=== PATIENT | female | born 1980 | race Caucasian/White ===

== ENCOUNTER 2019-10-12 13:00 | Emergency (ER) | payer OTHER ==
[~2019-10-12] VITALS: Ht 170.2 cm; Wt 63.5 kg
--- NOTE | 2019-10-12 13:21 | NUR ---
is at bedside doing the MSE.
[2019-10-12] MEDS ORDERED: HYDROMORPHONE 1 MG/1 ML DISP.SYRIN ONE (13:27)
[2019-10-12] MEDS ORDERED: ONDANSETRON 4 MG/2 ML VIAL ONE (13:27)
[2019-10-12] MEDS ORDERED: HYDROMORPHONE 1 MG/1 ML DISP.SYRIN IM ONE (13:30)
[2019-10-12] MEDS ORDERED: ONDANSETRON 4 MG/2 ML VIAL IM ONE (13:30)
[2019-10-12 13:42] LABS: *URINE HCG, QUAL NEGATIVE (NEGATIVE)
[2019-10-12 14:04] LABS: *BILIRUBIN,URIN NEGATIVE (NEGATIVE); *COLOR,URINE YELLOW (YELLOW); *KETONES,URINE NEGATIVE (NEGATIVE); *UROBILINOGEN,URINE 0.2 E.U./dl (NORMAL); LEUKOCYTE ESTERASE ,URINE 1+ (NEGATIVE); NITRITE, URINE NEGATIVE (NEGATIVE); PH,URINE 5.5 (5.0-8.0); UGLUCOSE NEGATIVE (NEGATIVE)
[2019-10-12 14:26] LABS: *BLOOD, URINE TRACE (NEGATIVE); *CLARITY,URINE CLOUDY (CLEAR)
[2019-10-12 14:29] LABS: RBC,URINE 0-3 /HPF (0-3); SQUAMOUS EPITHELIAL CELL,UR MODERATE /HPF (NONE SEEN)
[2019-10-12 14:30] LABS: URINE AMORPHOUS PHOSPHATES MANY /HPF
[2019-10-12 14:31] LABS: MUCUS,URINE MODERATE /LPF (0-FEW)
--- NOTE | 2019-10-12 14:58 | NUR ---
Patient discharged to home in stable conditon. Written and verbal after care instructions given. Patient verbalizes understanding of instructions.
[2019-10-12] MEDS ORDERED: IV NORMAL SALINE 1000 ML BAG IV ONE (15:00)
== END 2019-10-12 15:02 | disposition home or self-care (01) ==
LOC: ER 13:00
DX: D25.9 Leiomyoma of uterus, unspecified (principal)
CPT/HCPCS: 74176; 81000; 81001; 84703; 87086; 96372 ×2; 99284; J1170; J2405; 87077; A4663

== ENCOUNTER 2019-12-09 16:44 | Emergency (ER) | payer OTHER ==
[~2019-12-09] VITALS: Ht 170.2 cm; Wt 65.8 kg
[2019-12-09] MEDS ORDERED: VANCOMYCIN IV 200 ML ONE (17:06)
[2019-12-09] MEDS ORDERED: VANCOMYCIN IV 1,000 MG in IV DEXTROSE 5% 250 ML IV ONE (17:15)
--- NOTE | 2019-12-09 17:34 | NUR ---
Patient is resting comfortably on gurney while using her personal electronic device, [email or web address]. Patient is tolerating the IV Vancomycin.
[2019-12-09] MEDS ORDERED: HYDROMORPHONE 1 MG/1 ML DISP.SYRIN ONE (17:43)
[2019-12-09] MEDS ORDERED: ONDANSETRON 4 MG/2 ML VIAL ONE (17:44)
[2019-12-09] MEDS ORDERED: ONDANSETRON 4 MG/2 ML VIAL IV ONE (17:45)
[2019-12-09] MEDS ORDERED: HYDROMORPHONE 1 MG/1 ML DISP.SYRIN IV ONE (17:45)
--- NOTE | 2019-12-09 18:45 | NUR ---
IV removed. Catheter intact and site benign. Pressure and 4x4 gauze applied to site. No bleeding noted. Patient discharged to home in stable condition & steady gait. Written and verbal after care instructions given to patient. Patient verbalized understanding & compliance of instructions. Patient said that she will take "Uber".
== END 2019-12-09 18:47 | disposition home or self-care (01) ==
LOC: ER 16:47
DX: L03.211 Cellulitis of face (principal)
CPT/HCPCS: 96365; 96375; 99284; J1170; J2405; J3370; A4663

== ENCOUNTER 2019-12-10 15:16 | Emergency (ER) | payer OTHER ==
[~2019-12-10] VITALS: Ht 170.2 cm; Wt 65.8 kg
--- NOTE | 2019-12-10 15:55 | NUR ---
Patient presents to ER with request for antibiotics for face wound. Per Patient she was here yesterday and diagnosed with cellulitis on her face and is now requesting antibiotics. Placed in RM 1B. 20g started to Lt forearm. Patient in no acute distress.
--- NOTE | 2019-12-10 15:58 | NUR ---
Seen and examined by Dr. Saenz
[2019-12-10] MEDS ORDERED: HYDROMORPHONE 1 MG/1 ML DISP.SYRIN IV ONE (16:00)
[2019-12-10] MEDS ORDERED: ONDANSETRON 4 MG/2 ML VIAL IV ONE (16:00)
[2019-12-10] MEDS ORDERED: IV NORMAL SALINE 1000 ML BAG IV ONE (16:00)
[2019-12-10] MEDS ORDERED: ONDANSETRON 4 MG/2 ML VIAL ONE (16:03)
[2019-12-10] MEDS ORDERED: HYDROMORPHONE 1 MG/1 ML DISP.SYRIN ONE (16:03)
[2019-12-10] MEDS ORDERED: VANCOMYCIN IV 200 ML ONE (16:45)
[2019-12-10] MEDS ORDERED: VANCOMYCIN IV 1,000 MG in IV DEXTROSE 5% 250 ML IV ONE (16:45)
--- NOTE | 2019-12-10 17:00 | NUR ---
Patient in [facility], dinner provided to her and her son who is at bedside. No reactions noted to flip at this time.
[2019-12-10] MEDS ORDERED: KETOROLAC TROMETHAMINE 30 MG INJ IVP ONE (17:45)
[2019-12-10] MEDS ORDERED: KETOROLAC TROMETHAMINE 30 MG INJ ONE (17:50)
--- NOTE | 2019-12-10 18:23 | NUR ---
Patient resting in gurney. Reports pain 2/10 after toradol. Patient in no acute distress. Will cont' to monitor.
--- NOTE | 2019-12-10 19:05 | NUR ---
Patient discharged to home in stable conditon. Written and verbal after care instructions given. Patient verbalizes understanding of instructions. IV removed. Catheter intact and site benign. Pressure and 4x4 gauze applied to site. No bleeding noted. Patient tolerated iV antibiotics, no adverse reactions noted. Left ER in stable condition.
[2019-12-10 19:07] VITALS: BP 100/59
== END 2019-12-10 19:05 | disposition home or self-care (01) ==
LOC: ER 15:17
DX: L03.211 Cellulitis of face (principal)
CPT/HCPCS: 96374; 96375; 99284; J1170; J1885; J2405; J3370; A4663; J7030

== ENCOUNTER 2020-04-03 18:44 | Emergency (ER) | payer OTHER ==
[~2020-04-03] VITALS: Ht 170.2 cm; Wt 70.3 kg
--- NOTE | 2020-04-03 19:15 | NUR ---
PATIENT WAS MSE BY DR HUMPHRIES IN ROOM 05A. PATIENT A & O X4.
--- NOTE | 2020-04-03 19:40 | NUR ---
PATIENT WAS PROVIDED MEAL AND JUICE. NO S/S ANY DISTRESS NOTED. WILL CONTINUE TO MONITOR.
--- NOTE | 2020-04-03 20:24 | NUR ---
Patient discharged to home in stable condition. Written and verbal after care instructions given. Patient verbalizes understanding of instructions. Stressed follow up or return to ER for worsening s/s.
[2020-04-03 20:25] VITALS: BP 102/75
== END 2020-04-03 20:24 | disposition home or self-care (01) ==
LOC: ER 18:48
DX: Z13.9 Encounter for screening, unspecified (principal); R05 Cough; F17.290 Nicotine dependence, other tobacco product, uncomplicated
CPT/HCPCS: A4663

== ENCOUNTER 2020-05-23 15:27 | Emergency (ER) | payer OTHER ==
[~2020-05-23] VITALS: Ht 170.2 cm; Wt 68.0 kg
--- NOTE | 2020-05-23 15:48 | NUR ---
Dr. Jerez at bedside for MSE
[2020-05-23 16:16] LABS: BASOPHILS # (AUTO) 0.1 K/uL (0.0-8.0); BASOPHILS % (AUTO) 0.9 % (0.0-2.0); EOSINOPHILS # (AUTO) 0.1 K/uL (0.0-0.7); EOSINOPHILS % (AUTO) 2.1 % (0.0-7.0); HEMATOCRIT 39.8 % (31.2-41.9); HEMOGLOBIN 13.2 g/dL (10.9-14.3); LYMPHOCYTES # (AUTO) 1.9 K/uL (20.0-40.0); MEAN CORPUSCULAR HGB CONC 33 g/dL (32.3-35.6); MEAN CORPUSCULAR VOLUME 93.5 fL (75.5-95.3); MONOCYTES # (AUTO) 0.4 K/uL (2.0-10.0); NEUTROPHILS # (AUTO) 4.3 K/uL (1.8-8.9); PLATELET COUNT (AUTO) 266 K/uL (179-408); RED BLOOD CELL COUNT(AUTO) 4.26 MIL/uL (3.63-4.92); WHITE BLOOD COUNT (AUTO) 6.8 K/uL (3.8-11.8)
[2020-05-23 16:25] LABS: BILIRUBIN,DIRECT 0.1 mg/dL (0.0-0.2); BILIRUBIN,TOTAL 0.3 mg/dL (0.2-1.0); TOTAL PROTEIN, SERUM 7.2 g/dL (6.4-8.2)
--- NOTE | 2020-05-23 16:37 | NUR ---
Patient discharged to home in stable condition. Written and verbal after care instructions given. Patient verbalizes understanding of instructions. Stressed follow up or return to ER for worsening s/s. Patient ambulating with steady gait. NAD noted
[2020-05-23 16:39] VITALS: BP 124/76
== END 2020-05-23 16:37 | disposition home or self-care (01) ==
LOC: ER 15:29
DX: R07.9 Chest pain, unspecified (principal); R00.2 Palpitations; F17.210 Nicotine dependence, cigarettes, uncomplicated
CPT/HCPCS: 36415; 70030-TC; 71045; 85025; 93005; A4663

== ENCOUNTER 2021-03-09 15:27 | Emergency (ER) | payer OTHER ==
[~2021-03-09] VITALS: Ht 170.2 cm; Wt 68.0 kg
[2021-03-09 15:55] LABS: *BILIRUBIN,URIN NEGATIVE (NEGATIVE); *BLOOD, URINE TRACE (NEGATIVE); *CLARITY,URINE SLIGHTLY CLOUDY (CLEAR); *COLOR,URINE YELLOW (YELLOW); *KETONES,URINE NEGATIVE (NEGATIVE); LEUKOCYTE ESTERASE ,URINE 1+ (NEGATIVE); NITRITE, URINE NEGATIVE (NEGATIVE); PH,URINE 8.5 (5.0-8.0); UGLUCOSE NEGATIVE (NEGATIVE)
--- NOTE | 2021-03-09 15:58 | NUR ---
at bedside for assessment
[2021-03-09 16:01] LABS: WBC,URINE 50-80 /HPF (0-3)
[2021-03-09 16:02] LABS: *URINE HCG, QUAL NEGATIVE (NEGATIVE); BACTERIA,URINE FEW /HPF (NONE SEEN); SQUAMOUS EPITHELIAL CELL,UR MODERATE /HPF (NONE SEEN)
[2021-03-09] MEDS ORDERED: DOXY100C41 PO (16:08)
[2021-03-09] MEDS ORDERED: NITR100C11 PO (16:08)
[2021-03-09] MEDS ORDERED: PHEN-704 PO (16:13)
[2021-03-09] MEDS ORDERED: NAPR-1164 PO (16:13)
[2021-03-09] MEDS ORDERED: CEPH500C2 PO (16:15)
[2021-03-09] MEDS ORDERED: CEFTRIAXONE 500 MG VIAL IM ONE (16:15)
[2021-03-09] MEDS ORDERED: KETOROLAC TROMETHAMINE 30 MG INJ IM ONE (16:15)
[2021-03-09] MEDS ORDERED: KETOROLAC TROMETHAMINE 30 MG INJ ONE (16:32)
[2021-03-09] MEDS ORDERED: CEFTRIAXONE 500 MG VIAL ONE (16:32)
[2021-03-09] MEDS ORDERED: LIDOCAINE HCL 1% 20 ML VIAL ONE (16:33)
== END 2021-03-09 16:35 | disposition home or self-care (01) ==
LOC: ER 15:27
DX: N39.0 Urinary tract infection, site not specified (principal); D25.9 Leiomyoma of uterus, unspecified; Z87.440 Personal history of urinary (tract) infections
CPT/HCPCS: 81001; 84703; 87077; 87086; 87186; 96372 ×2; 99284; J0696; J1885; J3490; A4663

== ENCOUNTER 2021-08-08 11:54 | Emergency (ER) | payer OTHER ==
[~2021-08-08] VITALS: Ht 172.7 cm; Wt 77.1 kg
[~2021-08-08 11:54] MED LIST: CEPH500C2 PO; DOXY-326 PO; NAPR-1164 PO; PHEN-704 PO
[2021-08-08 12:25] LABS: *BILIRUBIN,URIN NEGATIVE (NEGATIVE); *CLARITY,URINE CLEAR (CLEAR); *COLOR,URINE YELLOW (YELLOW); *KETONES,URINE NEGATIVE (NEGATIVE); *UROBILINOGEN,URINE 0.2 E.U./dl (NORMAL); LEUKOCYTE ESTERASE ,URINE NEGATIVE (NEGATIVE); NITRITE, URINE NEGATIVE (NEGATIVE); PH,URINE 5.5 (5.0-8.0); UGLUCOSE NEGATIVE (NEGATIVE)
[2021-08-08 12:27] LABS: *BLOOD, URINE TRACE (NEGATIVE)
--- NOTE | 2021-08-08 13:41 | NUR ---
Patient discharged to home in stable condition. Written and verbal after care instructions given. Patient verbalizes understanding of instructions. Stressed follow up or return to ER for worsening s/s. COVID-19 INTERVENTIONS IMPLEMENTED THE WHOLE ER STAY.
[2021-08-08 13:42] VITALS: BP 121/77
[2021-08-08 16:43] LABS: BACTERIA,URINE FEW /HPF (NONE SEEN); RBC,URINE 0-3 /HPF (0-3); SQUAMOUS EPITHELIAL CELL,UR FEW /HPF (NONE SEEN); URINE AMORPHOUS URATE MODERATE /HPF; WBC,URINE 0-3 /HPF (0-3)
== END 2021-08-08 13:54 | disposition home or self-care (01) ==
LOC: ER 11:54
DX: U07.1 COVID-19 (principal); M79.10 Myalgia, unspecified site; R30.0 Dysuria; Z87.440 Personal history of urinary (tract) infections; F17.200 Nicotine dependence, unspecified, uncomplicated; R01.1 Cardiac murmur, unspecified
CPT/HCPCS: 71045; A4663

== ENCOUNTER 2022-04-20 00:08 | Emergency (ER) | payer OTHER ==
[~2022-04-20] VITALS: Ht 170.2 cm; Wt 77.1 kg
--- NOTE | 2022-04-20 00:15 | NUR ---
pt in room 4a, pt states she was bit by her dogs. Dr. Estrada at bedside for MSE.
[2022-04-20] MEDS ORDERED: ONDANSETRON ODT 4 MG TAB.RAPDIS ONE (00:24)
[2022-04-20] MEDS ORDERED: AMOXICILLIN-CLAVUL 875-125MG TABLET ONE (00:25)
[2022-04-20] MEDS ORDERED: HYDROCODONE/APAP 10-325 MG TABLET ONE (00:25)
[2022-04-20] MEDS ORDERED: ONDANSETRON ODT 4 MG TAB.RAPDIS SL ONE (00:30)
[2022-04-20] MEDS ORDERED: HYDROCODONE/APAP 10-325 MG TABLET PO ONE (00:30)
[2022-04-20] MEDS ORDERED: AMOXICILLIN-CLAVUL 875-125MG TABLET PO ONE (00:30)
[2022-04-20] MEDS ORDERED: ONDA4TAB5 PO (00:34)
[2022-04-20] MEDS ORDERED: AMOX-430 PO (00:34)
[2022-04-20] MEDS ORDERED: HYDR-4209 PO (00:34)
--- NOTE | 2022-04-20 00:45 | NUR ---
wound site to right leg cleaned as ordered.
--- NOTE | 2022-04-20 00:50 | NUR ---
4in orthoglass postrior short leg splint applied to Rt ankle and metatarsals without difficulty. undersplint padding used with 3in bradly wrap x2. Pt had good CMS and cap refil<3sec. proper and thorough crutch instructions and demo given and pt returned good crutch demo.
--- NOTE | 2022-04-20 00:50 | NUR ---
pt taken to cat scan.
--- NOTE | 2022-04-20 00:58 | NUR ---
pt returned from cat scan.
--- NOTE | 2022-04-20 01:50 | NUR ---
call placed to focus [facility] for reading of cat scan.
[2022-04-20] MEDS ORDERED: HYDROMORPHONE 1 MG/1 ML DISP.SYRIN ONE (01:53)
[2022-04-20] MEDS ORDERED: HYDROMORPHONE 1 MG/1 ML DISP.SYRIN IM ONE (02:00)
--- NOTE | 2022-04-20 02:02 | NUR ---
additional call to focus /[facility] for a reading on a cat scan.
--- NOTE | 2022-04-20 02:35 | NUR ---
Ice pack applied to Rt ankle and LE elevated using trend feature of cat. Pt awaiting CT result for DC home.
--- NOTE | 2022-04-20 02:54 | NUR ---
Patient discharged to home in stable condition. Written and verbal after care instructions given. Patient verbalizes understanding of instructions. Stressed follow up or return to ER for worsening s/s. pt was taken via w/c to car. pt signed paperwork for d/c no questions noted.
[2022-04-20 02:55] VITALS: BP 110/50
== END 2022-04-20 02:56 | disposition home or self-care (01) ==
LOC: ER 00:11
DX: S91.331A Puncture wound without foreign body, right foot, initial encounter (principal); W54.0XXA Bitten by dog, initial encounter; Y93.89 Activity, other specified; Y92.89 Other specified places as the place of occurrence of the external cause; F17.290 Nicotine dependence, other tobacco product, uncomplicated
CPT/HCPCS: 73630; 73700; 96372; 99284; J1170; A4663; Q0162

== ENCOUNTER 2023-04-08 23:16 | Emergency (ER) | payer OTHER ==
[~2023-04-08] VITALS: Ht 170.2 cm; Wt 79.4 kg
[~2023-04-08 23:16] MED LIST changes: +AMOX-430 PO; +HYDR-4209 PO; +ONDA4TAB5 PO
--- NOTE | 2023-04-08 23:57 | NUR ---
Dr. Resendiz evaluating patient at bedside. MSE in progress.
[2023-04-09] MEDS ORDERED: KETOROLAC TROMETHAMINE 60 MG INJ IM ONE ×2 (00:12→00:15)
[2023-04-09] MEDS ORDERED: CLINDAMYCIN HCL 300 MG CAPSULE ONE (00:12)
[2023-04-09] MEDS ORDERED: ONDANSETRON HCL 4 MG TABLET ONE (00:12)
[2023-04-09] MEDS ORDERED: HYDROMORPHONE 1 MG/1 ML DISP.SYRIN ONE (00:13)
[2023-04-09] MEDS ORDERED: HYDROMORPHONE 2 MG/1 ML DISP.SYRIN ONE (00:13)
[2023-04-09] MEDS ORDERED: CLIN300C3 PO (00:14)
[2023-04-09] MEDS ORDERED: HYDR-3980 PO (00:14)
[2023-04-09] MEDS ORDERED: ONDANSETRON HCL 4 MG TABLET PO ONE (00:15)
[2023-04-09] MEDS ORDERED: CLINDAMYCIN HCL 150 MG CAPSULE PO ONE (00:15)
[2023-04-09] MEDS ORDERED: HYDROMORPHONE 1 MG/1 ML DISP.SYRIN IM ONE (00:15)
--- NOTE | 2023-04-09 00:34 | NUR ---
Patient discharged to home in stable condition. Written and verbal after care instructions given. Patient verbalizes understanding of instructions. Stressed follow up or return to ER for worsening s/s. Instructed patient not to drive. Patient given printed prescription for antibiotic and norco.
--- NOTE | 2023-04-09 00:42 | NUR ---
Zofran 8mg PO reassessment not done at 0115 and Dilaudid 3mg IM reassessment not done at 0045 due to patient being discharged. Prior to patient leaving patient denied N/V and relief pain rate 5/10.
[2023-04-09 00:45] VITALS: BP 110/74
== END 2023-04-09 00:46 | disposition home or self-care (01) ==
LOC: ER 23:18
DX: M27.2 Inflammatory conditions of jaws (principal); F17.210 Nicotine dependence, cigarettes, uncomplicated; Z79.2 Long term (current) use of antibiotics; Z79.899 Other long term (current) drug therapy
CPT/HCPCS: 99284; 96372 ×2; J1885; J1170 ×2; A4663; Q0162

== ENCOUNTER 2023-07-20 02:35 | Emergency (ER) | payer OTHER ==
[~2023-07-20] VITALS: Ht 172.7 cm; Wt 79.4 kg
[~2023-07-20 02:35] MED LIST changes: +CLIN300C3 PO; +HYDR-3980 PO
[2023-07-20] MEDS ORDERED: HYDR-3980 PO (03:06)
[2023-07-20] MEDS ORDERED: CLIN300C12 PO (03:06)
[2023-07-20] MEDS ORDERED: ONDANSETRON HCL 4 MG TABLET ONE (03:10)
[2023-07-20] MEDS ORDERED: HYDROMORPHONE 1 MG/1 ML DISP.SYRIN ONE (03:11)
[2023-07-20] MEDS ORDERED: CLINDAMYCIN HCL 300 MG CAPSULE ONE (03:11)
[2023-07-20] MEDS ORDERED: KETOROLAC TROMETHAMINE 60 MG INJ IM ONE ×2 (03:11→03:15)
[2023-07-20] MEDS ORDERED: HYDROMORPHONE 2 MG/1 ML DISP.SYRIN ONE (03:11)
[2023-07-20] MEDS ORDERED: HYDROMORPHONE 1 MG/1 ML DISP.SYRIN IM ONE (03:15)
[2023-07-20] MEDS ORDERED: CLINDAMYCIN HCL 150 MG CAPSULE PO ONE (03:15)
[2023-07-20] MEDS ORDERED: ONDANSETRON HCL 4 MG TABLET PO ONE (03:15)
[2023-07-20 03:34] VITALS: BP 106/75; O2SAT 98
== END 2023-07-20 03:34 | disposition home or self-care (01) ==
LOC: ER 02:37
DX: M27.2 Inflammatory conditions of jaws (principal); F17.210 Nicotine dependence, cigarettes, uncomplicated; Z79.2 Long term (current) use of antibiotics; Z79.899 Other long term (current) drug therapy
CPT/HCPCS: 99284; 96372 ×2; J1885; J1170 ×2; A4663; Q0162

== ENCOUNTER 2023-09-02 20:00 | Emergency (ER) | payer OTHER ==
[~2023-09-02] VITALS: Ht 170.2 cm; Wt 81.2 kg
[~2023-09-02 20:00] MED LIST changes: +CLIN300C12 PO
[2023-09-02] MEDS ORDERED: HYDROMORPHONE 1 MG/1 ML DISP.SYRIN IM ONE (21:30)
[2023-09-02] MEDS ORDERED: ONDANSETRON HCL 4 MG TABLET PO ONE (21:30)
[2023-09-02] MEDS ORDERED: HYDROMORPHONE 1 MG/1 ML DISP.SYRIN ONE (21:47)
[2023-09-02] MEDS ORDERED: ONDANSETRON ODT 4 MG TAB.RAPDIS ONE (21:47)
[2023-09-02] MEDS ORDERED: HYDR-3980 PO (22:28)
[2023-09-02 22:52] VITALS: BP 101/70; TEMP 98.5; O2SAT 99
== END 2023-09-02 22:52 | disposition home or self-care (01) ==
LOC: ER 20:02
DX: S42.001A Fracture of unspecified part of right clavicle, initial encounter for closed fracture (principal); S02.2XXA Fracture of nasal bones, initial encounter for closed fracture; S00.83XA Contusion of other part of head, initial encounter; Z79.2 Long term (current) use of antibiotics; Z79.899 Other long term (current) drug therapy; Y04.2XXA Assault by strike against or bumped into by another person, initial encounter; Y93.89 Activity, other specified; Y92.89 Other specified places as the place of occurrence of the external cause; Y99.8 Other external cause status
CPT/HCPCS: 29105; 70486; 73000; 96372; 99285; J1170; A4606; A4663; Q0162

== ENCOUNTER 2023-10-24 02:35 | Emergency (ER) | payer OTHER ==
[~2023-10-24] VITALS: Ht 170.2 cm; Wt 79.4 kg
[2023-10-24] MEDS ORDERED: OXYCODONE HCL 5 MG TABLET PO ONE (03:15)
[2023-10-24] MEDS ORDERED: OXYCODONE HCL 5 MG TABLET ONE (03:17)
[2023-10-24] MEDS ORDERED: TRAM50TA2 PO (03:52)
[2023-10-24 03:59] VITALS: BP 111/67; O2SAT 98
== END 2023-10-24 03:59 | disposition home or self-care (01) ==
LOC: ER 02:37
DX: S52.691A Other fracture of lower end of right ulna, initial encounter for closed fracture (principal); Z98.890 Other specified postprocedural states; Z79.899 Other long term (current) drug therapy; X58.XXXA Exposure to other specified factors, initial encounter; Y93.89 Activity, other specified; Y92.89 Other specified places as the place of occurrence of the external cause; Y99.8 Other external cause status
CPT/HCPCS: 73080; 73110; A4606; A4663